=== PATIENT | female | born 1985 | race Two or more races ===

== ENCOUNTER 2017-01-25 21:30 | Emergency (ER) | payer SELFPAY ==
[~2017-01-25] VITALS: Ht 152.4 cm; Wt 68.0 kg
[2017-01-25] MEDS ORDERED: TRAM-48 PO (22:00)
[2017-01-25] MEDS ORDERED: AMOX500C PO (22:00)
--- NOTE | 2017-01-25 22:00 | PHYS DOC ---
Past Medical History Past Medical History: No Pertinent History Past Surgical History: No Surgical History Alcohol Use: None Drug Use: None Adult General Chief Complaint Chief Complaint: DENTAL PROBLEM [facility] HPI Patient is a 31 year old female presents to the emergency department stating that she has her right lower wisdom tooth coming through. She states that she's been having increased pain for the last 2 weeks however within the last 2-3 days she's had extreme pain. She's been doing Orajel and ibuprofen 800 mg every 7 hours as instructed by her dentist. Patient states she continues to have severe throbbing type pain especially at night when she is trying to go to bed. Patient's blood pressure is elevated here in the emergency department. Patient states that she does not have any history of high blood pressure. Review of Systems Review of Systems Constitutional: Denies fever or chills [] Eyes: Denies change in visual acuity, redness, or eye pain [] HENT: Denies nasal congestion or sore throat. Complaining of dental pain Respiratory: Denies cough or shortness of breath [] Cardiovascular: No additional information not addressed in HPI [] GI: Denies abdominal pain, nausea, vomiting, bloody stools or diarrhea [] : Denies dysuria or hematuria [] Musculoskeletal: Denies back pain or joint pain [] Integument: Denies rash or skin lesions [] Neurologic: Denies headache, focal weakness or sensory changes [] Endocrine: Denies polyuria or polydipsia [] All other systems were reviewed and found to be within normal limits, except as documented in this note. Allergies Allergies Allergies Coded Allergies Type Severity Reaction Last Updated Verified No Known Drug Allergies 01/25/17 No Physical Exam Physical Exam Constitutional: Well developed, well nourished, no acute distress, non-toxic appearance. [] HENT: Normocephalic, atraumatic, bilateral external ears normal, oropharynx moist, no oral exudates, nose normal. Bilateral tympanic membrane appears to be normal. Patient does have a wisdom tooth on the right lower that appears to be coming through with redness noted around the outer portion of the gum. Eyes: PERRLA, EOMI, conjunctiva normal, no discharge. [] Neck: Normal range of motion, no tenderness, supple, no stridor. [] Cardiovascular:Heart rate regular rhythm, no murmur [] Lungs & Thorax: Bilateral breath sounds clear to auscultation [] Skin: Warm, dry, no erythema, no rash. [] Extremities: No tenderness, no cyanosis, no clubbing, ROM intact, no edema. [] Neurologic: Alert and oriented X 3, normal motor function, normal sensory function, no focal deficits noted. [] Psychologic: Affect normal, judgement normal, mood normal. [] Current Patient Data Vital Signs Vital Signs Date Time Temp Pulse Resp B/P (MAP) Pulse Ox O2 Delivery O2 Flow Rate FiO2 01/25/17 21:35 98.4 100 18 98 Room Air 98.4 EKG EKG [] Radiology/Procedures Radiology/Procedures [] Course & Med Decision Making Course & Med Decision Making Pertinent Labs and Imaging studies reviewed. (See chart for details) Spoke with patient returns to take ibuprofen every 6 hours, Tylenol 1 g every 6 hours alternating to help manage the pain. Patient will be provided with Ultram and amoxicillin. She was instructed Ultram will cause drowsiness do not take maybe alert and oriented. Recommended some warm salt water mouth rinses 4 times a day. Recommended that she continue with the Orajel. Recommended that she eat foods that are soft. Patient was also instructed to follow-up with her dentist in which she states she has appointment next week. Signs and symptoms to return back to emergency department has been provided. All questions and concerns have been answered at the patient's bedside. Patient agrees with discharge instructions treatment regimens and follow-up recommendations. [] Dragon Disclaimer Dragon Disclaimer This electronic medical record was generated, in whole or in part, using a voice recognition dictation system. Departure Departure Impression: Primary Impression: Pain, dental Disposition: 01 HOME, SELF-CARE Condition: STABLE Patient Instructions: Dental Pain, [id number] Additional Instructions: Activity as tolerated. Monitor your blood pressure and follow up with her primary care physician in the next week. Ibuprofen 800 mg every 6 hours with food started taking the develop upset stomach. Tylenol 1 g every 6 hours. Do not take more than this dosage. Ultram for severe pain and discomfort this medication will cause drowsiness do not take needed be alert and oriented. Antibiotics as prescribed. Continue with warm salt water mouth rinses 4 times a day. Continued impression floss her teeth. Keep your dental appointment which is taken in one week. Return to the emergency department signs and symptoms become worse. Scripts Tramadol Hcl (ULTRAM) 50 Mg Tablet 1 TAB PO Q6HRS, #15 TAB Prov: ASHTYN SUÁREZ APRN 01/25/17 Amoxicillin (AMOXICILLIN) 500 Mg Capsule 1 CAP PO QID, #40 CAP Prov: ASHTYN SUÁREZ APRN 01/25/17 ASHTYN SUÁREZ APRN Jan 25, 2017 22:00
[2017-01-25 22:22] VITALS: BP 177/110
[2017-01-25] MEDS ORDERED: traMADol 50 MG TABLET PO ONE (22:30)
== END 2017-01-25 22:22 | disposition home or self-care (01) ==
LOC: ER 21:30
DX: K08.89 Other specified disorders of teeth and supporting structures (principal)
CPT/HCPCS: 99283